=== PATIENT | male | born 1995 | race Caucasian/White ===

== ENCOUNTER 2019-05-12 07:05 | Day surgery (SDC) | payer OTHER ==
[~2019-05-12] VITALS: Ht 182.9 cm; Wt 91.9 kg
[~2019-05-12 07:05] MED LIST: BUPIVACAINE/PF-EPI 0.25% 1:200K ONE
[2019-05-12] MEDS ORDERED: none per pt (07:34)
[2019-05-12 07:36] VITALS: BP 99/64
[2019-05-12] MEDS ORDERED: MIDAZOLAM 1 MG/ML, 2ML ONE (07:42)
[2019-05-12] MEDS ORDERED: FENTANYL PF 100 MCG/2ML ONE (07:42)
[2019-05-12] MEDS ORDERED: GABAPENTIN 300 MG CAPSULE PO STA (07:47)
[2019-05-12] MEDS ORDERED: LACTATED RINGERS 1,000 ML IV SCH (07:47)
[2019-05-12] MEDS ORDERED: ACETAMINOPHEN 500 MG TABLET PO STA (07:47)
[2019-05-12] MEDS ORDERED: SUCCINYLCHOLINE 20 MG/ML, 10ML ONE (08:37)
[2019-05-12] MEDS ORDERED: ROCURONIUM 10 MG/ML,10ML ONE (08:37)
[2019-05-12] MEDS ORDERED: METOPROLOL 1 MG/ML, 5ML IV PRN (09:00)
[2019-05-12] MEDS ORDERED: HYDROmorphone 2 MG/ML, 1ML IVPush PRN (09:00)
[2019-05-12] MEDS ORDERED: FENTANYL PF 100 MCG/2ML IV PRN (09:00)
[2019-05-12] MEDS ORDERED: MIDAZOLAM 1 MG/ML, 2ML IV PRN (09:00)
[2019-05-12] MEDS ORDERED: MEPERIDINE/PF 25MG/ML,1ML IVPush PRN (09:00)
[2019-05-12] MEDS ORDERED: OXYcodone 5 MG/5 ML ORAL.SOL UDC PO PRN (09:00)
[2019-05-12] MEDS ORDERED: hydrALAzine 20 MG/ML, 1ML IV PRN (09:00)
[2019-05-12] MEDS ORDERED: PROMETHAZINE 25 MG/ML, 1ML IV PRN (09:00)
[2019-05-12] MEDS ORDERED: ALBUTEROL/IPRATROPIUM 2.5MG/0.5MG, 3 ML NPPB PRN (09:00)
[2019-05-12] MEDS ORDERED: CEFAZOLIN 1,000 MG ONE (09:19)
[2019-05-12] MEDS ORDERED: BUPIVACAINE/PF 0.5% ONE (09:19)
[2019-05-12] MEDS ORDERED: DEXAMETHASONE 4 MG/ML, 1ML ONE (09:19)
[2019-05-12] MEDS ORDERED: LIDOCAINE-MPF 2% ,5ML ONE (09:19)
[2019-05-12] MEDS ORDERED: PROPOFOL 10 MG/ML, 20ML ONE (09:19)
[2019-05-12] MEDS ORDERED: ONDANSETRON 2MG/ML, 2ML ONE (09:19)
== END 2019-05-12 11:45 | disposition home or self-care (01) ==
LOC: OUT 07:05
PROVIDERS: ATTEND Orthopaedic Surgery
DX: M25.312 Other instability, left shoulder (principal); M94.212 Chondromalacia, left shoulder; M24.112 Other articular cartilage disorders, left shoulder; F17.210 Nicotine dependence, cigarettes, uncomplicated; Z88.0 Allergy status to penicillin
CPT/HCPCS: 29806; C1713; J0330; J0690; J1100; J2250; J2405; J2704; J3010; J7120